=== PATIENT | male | born 1945 | race Caucasian/White ===

== ENCOUNTER → 2021-12-27 | Day surgery (SDC) | payer OTHER, MEDICARE ==
[~2021-12-27] VITALS: Ht 172.7 cm; Wt 95.3 kg
[~2021-12-27] MED LIST: AMLO-496 PO; ATOR20TA PO; BUPIVACAINE 0.25% INJ 50ML VIAL ONE; CETI10TA2 PO; DABI150C5 PO; DULA1INJ SC; EZET10TA22 PO; FLUT250M2 INH; FOLITAB22 PO; FURO40TA4 PO; GABA300C10 PO; GLIP5TAB12 PO; HYDROmorphone HCL 2 MG/ML VL IV PRN; INSU100I33 SC; InsuLIN REG 1unit/0.01ml Soln (100units/ml) IV ONE; InsuLIN REG 1unit/0.01ml Soln (100units/ml) ONE; LABETALOL HCL 5 MG/ML 4ML SYRINGE IV PRN; LIDOCAINE 1% HCL (LOCAL ANESTH.) INJ 20ML MDV ONE; LOSA-39 PO; MEPERIDINE HCL (25 MG/ML) 1ML VIAL ONE; METF-372 PO; MIDAZOLAM HCL 2MG/2ML 2ml VIAL (1mg/ml) IV PRN; MIDAZOLAM HCL 2MG/2ML 2ml VIAL (1mg/ml) ONE; MORPHINE SULFATE 4 MG/ML SYR/VIAL IV PRN; ONDANSETRON HCL 4 MG/2 ML VIAL IV PRN; POTA10TA51 PO; VANCOMYCIN HCL 1000 MG VL ONE; ceFAZolin 1GM/50ML 100 ML IV ONE; diphenhdrAMINE HCL 50 MG/1 ML VL ONE; ePHEDrine SULFATE 50 MG/ML AMP IV PRN; fentaNYL CITRATE 100 MCG/2 ML VL ONE
[2021-12-27 09:50] VITALS: BP 162/75
== END | disposition home or self-care (01) ==
LOC: SUR 06:15 → EDSEX 07:00
PROVIDERS: ATTEND Anesthesiology
DX: M48.062 Spinal stenosis, lumbar region with neurogenic claudication (principal); G35 Multiple sclerosis; I10 Essential (primary) hypertension; E78.5 Hyperlipidemia, unspecified; Z90.49 Acquired absence of other specified parts of digestive tract; Z98.890 Other specified postprocedural states; Z79.899 Other long term (current) drug therapy; Z98.49 Cataract extraction status, unspecified eye; Z88.1 Allergy status to other antibiotic agents; Z95.1 Presence of aortocoronary bypass graft; I25.10 Atherosclerotic heart disease of native coronary artery without angina pectoris; I48.91 Unspecified atrial fibrillation; Z90.89 Acquired absence of other organs; Z82.49 Family history of ischemic heart disease and other diseases of the circulatory system; Z83.3 Family history of diabetes mellitus; Z83.438 Family history of other disorder of lipoprotein metabolism and other lipidemia; Z20.822 Contact with and (suspected) exposure to COVID-19
CPT/HCPCS: 22869; 72100; 76000; 82962; C1821; J0690; J1200; J1815; J2001; J2175; J2250; J3010; J3370; J3490; U0003